=== PATIENT | male | born 2000 | race Caucasian/White ===

== ENCOUNTER 2025-01-17 19:58 | Emergency (ER) | payer OTHER ==
[2025-01-17] MEDS: Diphtheria,Pertussis(Acell),Tetanus Vaccine 0.5 ML Syringe IM ONE (20:15)
== END 2025-01-17 20:31 | disposition home or self-care (01) ==
LOC: MW.ED 19:58
DX: S61.011A Laceration without foreign body of right thumb without damage to nail, initial encounter (principal); W26.0XXA Contact with knife, initial encounter
CPT/HCPCS: 12001; 99282; J2003; 99283